=== PATIENT | female | born 1985 | race Caucasian/White ===

== ENCOUNTER 2018-07-13 00:39 | Emergency (ER) | payer OTHER ==
[2018-07-13 00:45] VITALS: BP 137/89; PULSE 79; TEMP 98.2; BMI 31.1
[2018-07-13] MEDS ORDERED: KETOROLAC TROMETHAMINE 30 MG/1 ML VIAL ONE (02:03)
[2018-07-13] MEDS ORDERED: KETOROLAC TROMETHAMINE 60 MG/2 ML VIAL IM ONE (02:09)
--- NOTE | 2018-07-13 02:10 | PDOC ---
History of Present Illness - General Chief Complaint: Pain, Acute Stated Complaint: INFECTION UNDER CROWN OF TOOTH Time Seen by Provider: 07/13/18 00:52 - History of Present Illness Initial Comments: This otherwise healthy 33-year-old woman presents with painful swelling of her right lower jaw the last few hours. Patient was seen by her dentist earlier today with abscess in the right lower first molar area. She was started on amoxicillin 500 mg 3 times a day; tonight, patient noted marked swelling and pain in her right lower jaw after awakening from a nap. The patient took over- the-counter ibuprofen without relief. She has no fever/chills or other associated symptoms. Past History - Past Medical History Allergies/Adverse Reactions: Allergies Allergy/AdvReac Type Severity Reaction Status Date / Time Sulfa (Sulfonamide Allergy Unknown Verified 08/21/14 20:33 Antibiotics) amoxicillin trihydrate Allergy Verified 08/21/14 20:33 [From Augmentin] potassium clavulanate Allergy Verified 08/21/14 20:33 [From Augmentin] Home Medications: Ambulatory Orders Amoxicillin 200 mg PO TID 07/13/18 Ketorolac Tromethamine [Toradol] 10 mg PO TID PRN #15 tablet 07/13/18 COPD: No HTN: Yes ( RELATED (RESOLVED)) - Surgical History Appendectomy: Yes GI Surgery: Yes (appendectomy 2006) - Immunization History Immunization Up to Date: No - Suicide/Smoking/Psychosocial Hx Smoking History: Never smoked Have you smoked in the past 12 months: No Number of Cigarettes Smoked Daily: 0 Information on smoking cessation initiated: Yes Hx Alcohol Use: No Drug/Substance Use Hx: No Substance Use Type: None Hx Substance Use Treatment: No Review of Systems - Review of Systems Able to Perform ROS?: Yes Comments:: 12 point review of systems is negative except for what is noted in the history of present illness *Physical Exam - Vital Signs Last Vital Signs Temp Pulse Resp BP Pulse Ox 98.2 F 79 16 137/89 100 07/13/18 00:42 07/13/18 00:42 07/13/18 00:42 07/13/18 00:42 07/13/18 00:42 - Physical Exam Comments: GENERAL: Adult female, alert and oriented 3, no acute distress HEAD: Normal with no signs of trauma. EYES: PERRLA, EOMI, sclera anicteric, conjunctiva clear. ENT: Ears normal, nares patent, oropharynx clear without exudates. Moist mucous membranes. Edema/mild tenderness base of right first lower molar Moderate edema mid right mandibular area with mild erythema/increase in warmth; no fluctuance noted NECK: Normal range of motion, supple without lymphadenopathy, JVD, or masses. NEUROLOGICAL: Cranial nerves II through XII grossly intact. Normal speech. No focal neurological deficits. MUSCULOSKELETAL: Back non-tender to palpation, no CVA tenderness SKIN: Warm, Dry, normal turgor, no rashes or lesions noted. Medical Decision Making - Medical Decision Making Patient improved after 30 mg Toradol IM with decreased pain/edema/tenderness. Patient will be given prescription for Toradol 10 mg to be taken up to 3 times a day with food as needed for pain; she will follow-up with her zoo keeper within the next week, sooner if swelling persists for more than 48 hours *DC/Admit/Observation/Transfer Diagnosis at time of Disposition: Dental infection - Discharge Dispostion Disposition: HOME Condition at time of disposition: Stable - Prescriptions Prescriptions: Ketorolac Tromethamine [Toradol] 10 mg PO TID PRN #15 tablet PRN Reason: Pain - Referrals - Patient Instructions Printed Discharge Instructions: Tooth Abscess Additional Instructions: Continue amoxicillin as prescribed Return here or see your zoo keeper if swelling persists for more than 48 hours Toradol 10 mg up to 3 times a day as needed for pain (take with food) - Post Discharge Activity
== END 2018-07-13 03:03 | disposition home or self-care (01) ==
LOC: FER 00:39
PROC: 3E0233Z Introduction of Anti-inflammatory into Muscle, Percutaneous Approach (ICD-10-PCS; principal; 2018-07-13)
DX: K04.7 Periapical abscess without sinus (principal); I10 Essential (primary) hypertension
CPT/HCPCS: 96372; 99281-25